=== PATIENT | male | born 1985 | race Caucasian/White ===

== ENCOUNTER 2016-06-09 17:38 | Emergency (ER) | payer OTHER ==
[2016-06-09] MEDS ORDERED: LIDOCAINE 1% MDV 20ML VIAL As Ordered ONE (18:34)
--- NOTE | 2016-06-09 19:09 | EDDOCDS ---
Nurse's Notes [facility] Name: Avery Hagen Ii Age: 30 yrs Sex: Male : 1985 Arrival Date: 06/09/2016 Time: 17:38 Bed PR2 / 26 [facility] Diagnosis: Laceration without foreign body of left hand Presentation: 06/09 17:42 Presenting complaint: Patient states: that he cut L hand with a knife on accident. No ms18 bleeding noted at this time. Adult Sepsis Screening: The patient does not have new or worsening altered mentation. Patient's respiratory rate is less than 22. Systolic blood pressure is greater than 100. Patient has a qSOFA score of 0- Negative Sepsis Screen. Suicide/Homicide risk assessment- the patient denies having any suicidal and/or homicidal ideations and does not present with any other emotional, behavioral or mental health complaints. Status: The patient is an active duty business services analyst. Transition of care: patient was not received from another setting of care. 17:42 Acuity: JASWINDER Level 4 ms18 17:42 Method Of Arrival: Walkin/Carried/Asstd ms18 Triage Assessment: 17:46 General: Appears in no apparent distress, comfortable, Behavior is appropriate for age, ms18 cooperative. Pain: Location: Left first web space Pain currently is 2 out of 10 on a pain scale. HIV screening NA for this visit Offered previously. Neurological: No deficits noted. Respiratory: No deficits noted. Derm: Skin is pink, warm & dry. Historical: - Allergies: no known allergies; - Home Meds: 1. sleeping meds - PMHx: none; - PSHx: Hernia repair; - Immunization history:: Last tetanus immunization: < 5 years ago All immunizations up-to-date. - Family history: Not pertinent. - Social history: Smoking status: Chewing Tobacco No barriers to communication noted, The patient speaks fluent Rwandan. - : The pt / caregiver states he / she is not on anticoagulants. Home medication list is obtained from the patient. - Exposure Risk Screening:: None identified. Screenin:35 Screening information is obtained from the patient. Fall risk: No risks identified. jjr Assistance ADL's: requires no assistance with activities of daily living. Abuse/DV Screen: The patient / caregiver reports he/she is: not in a situation that causes fear, pain or injury. Nutritional screening: No deficits noted. Advance Directives: There is no active DNR order. home support is adequate. Assessment: 18:34 General: Appears in no apparent distress, Behavior is appropriate for age. Injury jjr Description: Laceration sustained to Left first web space is clean. 19:07 Reassessment: Patient appears in no apparent distress at this time. Patient denies pain ttb at this time. Patient states feeling better. Patient states symptoms have improved. pt ready for DC. . 19:07 Neurological: Level of Consciousness is awake, alert. Respiratory: Airway is patent ttb Respiratory effort is even, unlabored. Vital Signs: 17:40 BP 143 / 86; Pulse 68; Resp 18; Temp 97.4(O); Pulse Ox 100% on R/A; Weight 96.62 kg ct3 (R); Height 6 ft. 1 in. (185.42 cm) (R); Pain 2/10; 17:40 Body Mass Index 28.10 (96.62 kg, 185.42 cm) ct3 Vitals: 17:40 Log In Time: June 09, 2016 at 17:37. ct3 ED Course: 17:39 Patient visited by Zahra Alvarado PCA. ct3 17:39 Patient moved to Waiting ct3 17:40 [facility] is Private Physician. ct3 17:41 Patient moved to Pre RCE ct3 17:44 Triage Initiated ms18 18:24 Patient moved to Triage 2 jjr 18:25 [facility]ún[facility]-C [facility] dk1 18:25 Ronaldo Dias MD is Attending Physician. dk1 18:26 Patient visited by Theodora Dennis PCA. jb5 18:27 Patient visited by Júnior Márquez PA-C. dk1 18:30 Assist provider with laceration repair using sutures, Laceration was <2.5 cm. with a ttb simple repair. Performed by Júnior Márquez PA-C Set up tray. Dressed with band aid, Patient tolerated well. 18:30 No IV's were initiated during this patient's visit. ttb 18:32 Patient moved to PR2 / 26 jjr 18:35 The patient / caregiver is instructed regarding the plan of care and ED course. jjr 18:36 Patient visited by Deepali Irene, RN. jjr 19:00 [facility] MOS[facility] is Referral Physician. dk1 Administered Medications: 18:35 Drug: Lidocaine 10 ml [lidocaine 10 mg/mL (1 %) injection solution (10 mL)] {Note: jjr given by provider.} Route: Infiltration; Order Results: There are currently no results for this order. Outcome: 18:30 Discharge Assessment: Patient awake, alert and oriented x 3. No cognitive and/or ttb functional deficits noted. Patient verbalized understanding of disposition instructions. Patient awake and alert. patient administered narcotics - no. The following High Risk Discharge criteria are identified: None. Discharged to home ambulatory. Condition: good Condition: stable Condition: improved. Discharge instructions given to patient, Instructed on discharge instructions, follow up and referral plans. medication usage, wound care, Demonstrated understanding of instructions, medications, wound care Pt was receptive of discharge instructions/ teaching. Prescriptions given X 1. No special radiology studies were completed. Property :Personal belongings accompany Pt. 19:00 Discharge ordered by Provider. dk1 19:08 Patient left the ED. ttb Signatures: Theodora Dennis, GEOTHERMAL POWERPLANT SUPERVISOR GEOTHERMAL POWERPLANT SUPERVISOR jb5 Júnior Márquez, PABhartiC PA-C dk1 Deepali Irene, RN RN Zahra De La Rosa, GEOTHERMAL POWERPLANT SUPERVISOR GEOTHERMAL POWERPLANT SUPERVISOR ct3 Gala Ruby RN RN ttb Shelby Gaspar RN RN ms18 MTDD
--- NOTE | 2016-06-09 19:09 | EDDOCDS ---
Physician Documentation [facility] Name: Avery Hagen Ii Age: 30 yrs Sex: Male : 1985 Arrival Date: 06/09/2016 Time: 17:38 Bed PR2 / Private MD: [facility] Disposition: 06/09/16 19:00 Discharged to Home/Self Care. Impression: Laceration without foreign body of left hand. - Condition is Stable. - Discharge Instructions: Sutured Wound Care. - Prescriptions for Tylenol 325 mg Oral Tablet - take 2 tablet by ORAL route every 6 hours as needed; 1 bottle. - Medication Reconciliation, Local Pharmacy Hours form. - Follow up: [facility]; When: 1 week; Reason: Staple/Suture removal. Follow up: Emergency Department; When: As needed; Reason: Worsening of conditions. - Problem is new. - Symptoms have improved. Historical: - Allergies: no known allergies; - Home Meds: 1. sleeping meds - PMHx: none; - PSHx: Hernia repair; - Immunization history:: Last tetanus immunization: < 5 years ago All immunizations up-to-date. - Family history: Not pertinent. - Social history: Smoking status: Chewing Tobacco No barriers to communication noted, The patient speaks fluent Moroccan. - : The pt / caregiver states he / she is not on anticoagulants. Home medication list is obtained from the patient. - Exposure Risk Screening:: None identified. Vital Signs: 06/09 17:40 BP 143 / 86; Pulse 68; Resp 18; Temp 97.4(O); Pulse Ox 100% on R/A; Weight 96.62 kg / ct3 213.01 lbs (R); Height 6 ft. 1 in. (185.42 cm) (R); Pain 2/10; 17:40 Body Mass Index 28.10 (96.62 kg, 185.42 cm) ct3 Procedures: 18:58 Laceration repair:. dk1 Laceration: 18:58 Wound Repair of 2cm ( 0.8in ) full thickness laceration to lateral aspect of left hand. dk1 Distal neuro/vascular/tendon intact. Anesthesia: Local anesthetic administered with 7 mls of 1% lidocaine, Local anesthetic administered with 7mls . Wound prep: Moderate cleansing by provider, Wound irrigation by provider. Skin closed with 7 x 4-0 Prolene using Simple interrupted sutures. Dressed with Bacitracin, 4x4's, Kerlix. Patient tolerated well. MDM: 18:32 Lidocaine 10 mg/mL (1 %) 10 ml Infiltration once; to bedside ordered. dk1 Administered Medications: 18:35 Drug: Lidocaine 10 ml [lidocaine 10 mg/mL (1 %) injection solution (10 mL)] {Note: jjr given by provider.} Route: Infiltration; Signatures: Júnior Márquez PA-C PA-C dk1 Gala Ruby, RN RN ttb Shelby Gaspar RN RN ms18 Deepali Irene RN jjr MTDD
--- NOTE | 2016-06-11 20:09 | EDDOCDS ---
Physician Documentation [facility] Name: Avery Hagen Ii Age: 30 yrs Sex: Male : 1985 Arrival Date: 06/09/2016 Time: 17:38 Bed PR2 / Private MD: [facility] Disposition: 06/09/16 19:00 Discharged to Home/Self Care. Impression: Laceration without foreign body of left hand. - Condition is Stable. - Discharge Instructions: Sutured Wound Care. - Prescriptions for Tylenol 325 mg Oral Tablet - take 2 tablet by ORAL route every 6 hours as needed; 1 bottle. - Medication Reconciliation, Local Pharmacy Hours form. - Follow up: [facility]; When: 1 week; Reason: Staple/Suture removal. Follow up: Emergency Department; When: As needed; Reason: Worsening of conditions. - Problem is new. - Symptoms have improved. Historical: - Allergies: no known allergies; - Home Meds: 1. sleeping meds - PMHx: none; - PSHx: Hernia repair; - Immunization history:: Last tetanus immunization: < 5 years ago All immunizations up-to-date. - Family history: Not pertinent. - Social history: Smoking status: Chewing Tobacco No barriers to communication noted, The patient speaks fluent Irish. - : The pt / caregiver states he / she is not on anticoagulants. Home medication list is obtained from the patient. - Exposure Risk Screening:: None identified. Vital Signs: 06/09 17:40 BP 143 / 86; Pulse 68; Resp 18; Temp 97.4(O); Pulse Ox 100% on R/A; Weight 96.62 kg / ct3 213.01 lbs (R); Height 6 ft. 1 in. (185.42 cm) (R); Pain 2/10; 19:09 BP 132 / 90; Pulse 86; Resp 18; Pulse Ox 98% on R/A; jb5 17:40 Body Mass Index 28.10 (96.62 kg, 185.42 cm) ct3 Procedures: 18:58 Laceration repair:. dk1 Laceration: 18:58 Wound Repair of 2cm ( 0.8in ) full thickness laceration to lateral aspect of left hand. dk1 Distal neuro/vascular/tendon intact. Anesthesia: Local anesthetic administered with 7 mls of 1% lidocaine, Local anesthetic administered with 7mls . Wound prep: Moderate cleansing by provider, Wound irrigation by provider. Skin closed with 7 x 4-0 Prolene using Simple interrupted sutures. Dressed with Bacitracin, 4x4's, Kerlix. Patient tolerated well. MDM: 18:32 Lidocaine 10 mg/mL (1 %) 10 ml Infiltration once; to bedside ordered. dk1 :28 [facility] Payment Agreement was scanned into [employer] and attached to record. jp5 :28 Financial registration complete. jp5 22:26 T-Sheet-- Draft Copy was scanned into [employer] and attached to record. klr Administered Medications: 18:35 Drug: Lidocaine 10 ml [lidocaine 10 mg/mL (1 %) injection solution (10 mL)] {Note: jjr given by provider.} Route: Infiltration; Signatures: Júnior Márquez PA-C PA-C dk1 Gala Ruby RN RN ttShelby Palmer RN RN ms18 Mart Haines jp5 Alissa Kennedy Jessica RN jjr The chart was reviewed and I authenticate all verbal orders and agree with the evaluation and treatment provided.Attachments: :28 [facility] Payment Agreement jp5 :26 T-Sheet-- Draft Copy klr Chart Complete MTDD
--- NOTE | 2016-06-11 20:09 | EDDOCDS ---
Nurse's Notes [facility] Name: Avery Hagen Ii Age: 30 yrs Sex: Male : 1985 Arrival Date: 06/09/2016 Time: 17:38 Bed PR2 / 26 [facility] Diagnosis: Laceration without foreign body of left hand Presentation: 06/09 17:42 Presenting complaint: Patient states: that he cut L hand with a knife on accident. No ms18 bleeding noted at this time. Adult Sepsis Screening: The patient does not have new or worsening altered mentation. Patient's respiratory rate is less than 22. Systolic blood pressure is greater than 100. Patient has a qSOFA score of 0- Negative Sepsis Screen. Suicide/Homicide risk assessment- the patient denies having any suicidal and/or homicidal ideations and does not present with any other emotional, behavioral or mental health complaints. Status: The patient is an active duty customer service technician. Transition of care: patient was not received from another setting of care. 17:42 Acuity: JASWINDER Level 4 ms18 17:42 Method Of Arrival: Walkin/Carried/Asstd ms18 Triage Assessment: 17:46 General: Appears in no apparent distress, comfortable, Behavior is appropriate for age, ms18 cooperative. Pain: Location: Left first web space Pain currently is 2 out of 10 on a pain scale. HIV screening NA for this visit Offered previously. Neurological: No deficits noted. Respiratory: No deficits noted. Derm: Skin is pink, warm & dry. Historical: - Allergies: no known allergies; - Home Meds: 1. sleeping meds - PMHx: none; - PSHx: Hernia repair; - Immunization history:: Last tetanus immunization: < 5 years ago All immunizations up-to-date. - Family history: Not pertinent. - Social history: Smoking status: Chewing Tobacco No barriers to communication noted, The patient speaks fluent Surinamese. - : The pt / caregiver states he / she is not on anticoagulants. Home medication list is obtained from the patient. - Exposure Risk Screening:: None identified. Screenin:35 Screening information is obtained from the patient. Fall risk: No risks identified. jjr Assistance ADL's: requires no assistance with activities of daily living. Abuse/DV Screen: The patient / caregiver reports he/she is: not in a situation that causes fear, pain or injury. Nutritional screening: No deficits noted. Advance Directives: There is no active DNR order. home support is adequate. Assessment: 18:34 General: Appears in no apparent distress, Behavior is appropriate for age. Injury jjr Description: Laceration sustained to Left first web space is clean. 19:07 Reassessment: Patient appears in no apparent distress at this time. Patient denies pain ttb at this time. Patient states feeling better. Patient states symptoms have improved. pt ready for DC. . 19:07 Neurological: Level of Consciousness is awake, alert. Respiratory: Airway is patent ttb Respiratory effort is even, unlabored. Vital Signs: 17:40 BP 143 / 86; Pulse 68; Resp 18; Temp 97.4(O); Pulse Ox 100% on R/A; Weight 96.62 kg ct3 (R); Height 6 ft. 1 in. (185.42 cm) (R); Pain 2/10; 19:09 BP 132 / 90; Pulse 86; Resp 18; Pulse Ox 98% on R/A; jb5 17:40 Body Mass Index 28.10 (96.62 kg, 185.42 cm) ct3 Vitals: 17:40 Log In Time: June 09, 2016 at 17:37. ct3 ED Course: 17:39 Patient visited by Zahra Alvarado PCA. ct3 17:39 Patient moved to Waiting ct3 17:40 [facility] is Private Physician. ct3 17:41 Patient moved to Pre RCE ct3 17:44 Triage Initiated ms18 18:24 Patient moved to Triage 2 jjr 18:25 Júnior Márquez PA-C is PHCP. dk1 18:25 Ronaldo Dias MD is Attending Physician. dk1 18:26 Patient visited by Theodora Dennis PCA. jb5 18:27 Patient visited by Júnior Márquez PA-C. dk1 18:30 Assist provider with laceration repair using sutures, Laceration was <2.5 cm. with a ttb simple repair. Performed by Júnior Márquez PA-C Set up tray. Dressed with band aid, Patient tolerated well. 18:30 No IV's were initiated during this patient's visit. ttb 18:32 Patient moved to PR2 / 26 jjr 18:35 The patient / caregiver is instructed regarding the plan of care and ED course. jjr 18:36 Patient visited by Deepali Irene RN. jjr 19:00 [facility]. dk1 19:09 Patient visited by Theodora Dennis PCA. jb5 19:28 [facility] Payment Agreement was scanned into [employer] and attached to record. jp5 20:01 Patient name changed from Avery\S\Tamiko\S\Bekiesz Ii\S\ to Avery\S\Zoran\S\Bekiesz Ii. EDMS 22:26 T-Sheet-- Draft Copy was scanned into [employer] and attached to record. klr Administered Medications: 18:35 Drug: Lidocaine 10 ml [lidocaine 10 mg/mL (1 %) injection solution (10 mL)] {Note: jjr given by provider.} Route: Infiltration; Order Results: There are currently no results for this order. Outcome: 18:30 Discharge Assessment: Patient awake, alert and oriented x 3. No cognitive and/or ttb functional deficits noted. Patient verbalized understanding of disposition instructions. Patient awake and alert. patient administered narcotics - no. The following High Risk Discharge criteria are identified: None. Discharged to home ambulatory. Condition: good Condition: stable Condition: improved. Discharge instructions given to patient, Instructed on discharge instructions, follow up and referral plans. medication usage, wound care, Demonstrated understanding of instructions, medications, wound care Pt was receptive of discharge instructions/ teaching. Prescriptions given X 1. No special radiology studies were completed. Property :Personal belongings accompany Pt. 19:00 Discharge ordered by Provider. dk1 19:08 Patient left the ED. ttb Signatures: Dispatcher [employer] EDUT Theodora Dennis, ANALILIA SALES SUPPORT CONSULTANT jb5 Júnior Márquez, PABhartiC PABhartiC dk1 Deepali Irene, MICK RN Zahra De La Rosa PCA SALES SUPPORT CONSULTANT ct3 Gala Ruby RN RN ttb Shelby Gaspar RN RN ms18 Belen Hainesgil jp5 Alissa Kennedy Chart Complete MTDD
--- NOTE | 2016-06-11 20:09 | EDDOCDS ---
Physician Documentation [facility] Name: Avery Hagen Ii Age: 30 yrs Sex: Male : 1985 Arrival Date: 06/09/2016 Time: 17:38 Bed PR2 / Private MD: [facility] Disposition: 06/09/16 19:00 Discharged to Home/Self Care. Impression: Laceration without foreign body of left hand. - Condition is Stable. - Discharge Instructions: Sutured Wound Care. - Prescriptions for Tylenol 325 mg Oral Tablet - take 2 tablet by ORAL route every 6 hours as needed; 1 bottle. - Medication Reconciliation, Local Pharmacy Hours form. - Follow up: [facility]; When: 1 week; Reason: Staple/Suture removal. Follow up: Emergency Department; When: As needed; Reason: Worsening of conditions. - Problem is new. - Symptoms have improved. Historical: - Allergies: no known allergies; - Home Meds: 1. sleeping meds - PMHx: none; - PSHx: Hernia repair; - Immunization history:: Last tetanus immunization: < 5 years ago All immunizations up-to-date. - Family history: Not pertinent. - Social history: Smoking status: Chewing Tobacco No barriers to communication noted, The patient speaks fluent Central African. - : The pt / caregiver states he / she is not on anticoagulants. Home medication list is obtained from the patient. - Exposure Risk Screening:: None identified. Vital Signs: 06/09 17:40 BP 143 / 86; Pulse 68; Resp 18; Temp 97.4(O); Pulse Ox 100% on R/A; Weight 96.62 kg / ct3 213.01 lbs (R); Height 6 ft. 1 in. (185.42 cm) (R); Pain 2/10; 19:09 BP 132 / 90; Pulse 86; Resp 18; Pulse Ox 98% on R/A; jb5 17:40 Body Mass Index 28.10 (96.62 kg, 185.42 cm) ct3 Procedures: 18:58 Laceration repair:. dk1 Laceration: 18:58 Wound Repair of 2cm ( 0.8in ) full thickness laceration to lateral aspect of left hand. dk1 Distal neuro/vascular/tendon intact. Anesthesia: Local anesthetic administered with 7 mls of 1% lidocaine, Local anesthetic administered with 7mls . Wound prep: Moderate cleansing by provider, Wound irrigation by provider. Skin closed with 7 x 4-0 Prolene using Simple interrupted sutures. Dressed with Bacitracin, 4x4's, Kerlix. Patient tolerated well. MDM: 18:32 Lidocaine 10 mg/mL (1 %) 10 ml Infiltration once; to bedside ordered. dk1 :28 [facility] Payment Agreement was scanned into [employer] and attached to record. jp5 :28 Financial registration complete. jp5 22:26 T-Sheet-- Draft Copy was scanned into [employer] and attached to record. klr Administered Medications: 18:35 Drug: Lidocaine 10 ml [lidocaine 10 mg/mL (1 %) injection solution (10 mL)] {Note: jjr given by provider.} Route: Infiltration; Signatures: Júnior Márquez PA-C PA-C dk1 Gala Ruby RN RN ttShelby Palmer RN RN ms18 Mart Haines jp5 Alissa Kennedy Jessica RN jjr The chart was reviewed and I authenticate all verbal orders and agree with the evaluation and treatment provided.Attachments: :28 [facility] Payment Agreement jp5 :26 T-Sheet-- Draft Copy klr Chart Complete MTDD
== END 2016-06-09 19:08 | disposition home or self-care (01) ==
LOC: M ED 17:38
DX: S61.412A Laceration without foreign body of left hand, initial encounter (principal); W26.0XXA Contact with knife, initial encounter; Y92.89 Other specified places as the place of occurrence of the external cause; Y93.89 Activity, other specified; Y99.8 Other external cause status; F17.220 Nicotine dependence, chewing tobacco, uncomplicated; Z79.899 Other long term (current) drug therapy

== ENCOUNTER → 2017-10-27 | Outpatient (REF) | payer OTHER | LOC: M SFHCLERA 16:55 | DX: J02.9 Acute pharyngitis, unspecified (principal) ==

== ENCOUNTER 2018-03-19 22:57 | Emergency (ER) | payer OTHER ==
[2018-03-19] MEDS: MORPHINE 4 MG/ML 1ML VIAL/SYRINGE (J2270) IV (23:29)
[2018-03-20] MEDS: fentaNYL 100 MCG/2 ML INJECTION (J3010) IV (00:06)
[2018-03-20] MEDS: NS 1,000 ML IV ×2 (00:30→02:02)
[2018-03-20] MEDS: PROPOFOL 200 MG/20 ML VIAL IV ×4 (01:40→01:44)
[2018-03-20] MEDS: NORCO 5/325MG TABLET (BULK FOR ED) PO (02:15)
== END 2018-03-20 02:50 | disposition home or self-care (01) ==
LOC: M ED 22:57
DX: S63.260A Dislocation of metacarpophalangeal joint of right index finger, initial encounter (principal); S63.262A Dislocation of metacarpophalangeal joint of right middle finger, initial encounter; S63.264A Dislocation of metacarpophalangeal joint of right ring finger, initial encounter; S63.266A Dislocation of metacarpophalangeal joint of right little finger, initial encounter; S62.144A Nondisplaced fracture of body of hamate [unciform] bone, right wrist, initial encounter for closed fracture; S62.134A Nondisplaced fracture of capitate [os magnum] bone, right wrist, initial encounter for closed fracture; W00.0XXA Fall on same level due to ice and snow, initial encounter; Y92.098 Other place in other non-institutional residence as the place of occurrence of the external cause
CPT/HCPCS: J2270